=== PATIENT | male | born 1985 | race Caucasian/White ===

== ENCOUNTER 2021-01-20 15:12 | Emergency (ER) | payer MEDICAID ==
[~2021-01-20] VITALS: Ht 175.3 cm; Wt 84.1 kg
[2021-01-20 15:26] VITALS: Ht 175.3 cm; Wt 84.1 kg
[2021-01-20 15:53] LABS: BASOPHILS 0.7 % (0-2); EOSINOPHILS 1.3 % (0-7); HEMATOCRIT 46.6 % (42.0-54.0); HEMOGLOBIN 15.8 g/dL (13.5-17.5); LYMPHOCYTES 18.5 % (15-50); MCH 31.2 pg (26.0-34.0); MCHC 33.9 g/dL (31.0-37.0); MEAN PLATELET VOLUME 8.5 fL (7.4-10.4); MONOCYTES 9.5 % (2-11); PLATELET COUNT 180 10x3/uL (130-400); RBC 5.07 10x6/uL (4.20-6.10); RDW 13.6 % (11.5-14.5)
[2021-01-20 15:56] LABS: BILIRUBIN NEGATIVE (NEGATIVE); KETONE NEGATIVE (NEGATIVE); NITRITE NEGATIVE (NEGATIVE); UROBILINOGEN NORMAL mg/dL (< 2)
[2021-01-20 15:57] LABS: BACTERIA FEW HPF (NONE SEEN); WHITE CELLS - URINE 0-5 HPF (0-1)
[2021-01-20 16:06] LABS: UDS - AMPHET NEGATIVE QUAL (NEGATIVE); UDS - BARB NEGATIVE QUAL (NEGATIVE); UDS - BENZO NEGATIVE QUAL (NEGATIVE); UDS - COCAINE NEGATIVE QUAL (NEGATIVE); UDS - OPIATE NEGATIVE QUAL (NEGATIVE); UDS - PCP NEGATIVE QUAL (NEGATIVE); UDS - THC NEGATIVE QUAL (NEGATIVE)
[2021-01-20 16:07] LABS: CALC OSMOLALITY 279 mosm/kg (275-300); CALCIUM 8.5 mg/dL (8.5-10.1); CHLORIDE - SERUM 102 mmol/L (98-107); GLUCOSE 115 mg/dL (74-106); POTASSIUM - SERUM 4.4 mmol/L (3.5-5.1); SODIUM 140 mmol/L (136-145); UREA NITROGEN 13 mg/dL (7-18); eGFR NON AFRICAN AMERICAN 90 mL/min (90-120)
[2021-01-20 16:10] LABS: ALBUMIN 3.5 g/dL (3.4-5.0); ALKALINE PHOSPHATASE 87 U/L (30-120); ALT (SGPT) 24 U/L (10-68); BILIRUBIN - TOTAL 0.18 mg/dL (0.2-1.3); PROTEIN - SERUM 6.6 g/dL (6.4-8.2)
--- NOTE | 2021-01-20 17:02 | NUR ---
Per patient assessment and observation, Patient has scored a high risk for suicide on the risk assessment. He agrees to inpatient counseling and medication treatment as needed. Discussed with charge nurse Christina and Dr. Abebe and also with César Mujica APN for Dr. Persaud and he will placed on one to one patient observation and await ER physician assessment. The patient safty plan and assessment is complete.
[2021-01-20] MEDS ORDERED: LITHOBID 300 M300 MG PO (17:23)
[2021-01-20] MEDS ORDERED: SEROQUEL200 MG PO (17:23)
[2021-01-20] MEDS ORDERED: STRATTERA60 MG PO (17:24)
[2021-01-20] MEDS ORDERED: PROZAC20 MG PO (17:24)
[2021-01-20 20:56] LABS: SARS-CoV-2 ANTIGEN NEGATIVE- SARS-COV-2 (NEGATIVE)
[2021-01-20 23:48] VITALS: BP 126/87
== END 2021-01-20 23:50 ==
LOC: D.ER 15:12
PROVIDERS: Emergency Medicine
DX: R45.850 Homicidal ideations (principal); R45.851 Suicidal ideations